=== PATIENT | female | born 1935 | race Caucasian/White ===

== ENCOUNTER 2019-06-18 15:42 | Emergency (ER) | payer MEDICARE, BC ==
[~2019-06-18] VITALS: Ht 162.6 cm; Wt 56.7 kg
[~2019-06-18 15:42] MED LIST: LEVO75TA PO; LORA1TAB GT; METO25TA6 PO
[2019-06-18] MEDS ORDERED: RIVA20TA PO (15:53)
--- NOTE | 2019-06-18 16:35 | NUR ---
Patient discharged to home in stable conditon. Written and verbal after care instructions given. Patient verbalizes understanding of instructions.pt walks i nsteady gait. pt with .
== END 2019-06-18 16:37 | disposition home or self-care (01) ==
LOC: ER 15:55
DX: S00.531A Contusion of lip, initial encounter (principal); I48.91 Unspecified atrial fibrillation; Z88.0 Allergy status to penicillin; Z79.899 Other long term (current) drug therapy; X58.XXXA Exposure to other specified factors, initial encounter; Y93.89 Activity, other specified; Y92.89 Other specified places as the place of occurrence of the external cause; Y99.8 Other external cause status
CPT/HCPCS: A4663